=== PATIENT | male | born 1960 ===

== ENCOUNTER 2017-09-13 15:42 | Emergency (ER) | payer OTHER ==
[2017-09-13 15:55] VITALS: BP 155/70; PULSE 74; TEMP 97.4; O2SAT 99
[2017-09-13] MEDS: Naproxen 550 mg Tab PO STA (16:30)
[2017-09-13] MEDS ORDERED: Naproxen 550 mg Tab PO ONE (16:31)
--- NOTE | 2017-09-13 16:45 | RAD ---
PROCEDURE: Cervical Spine Radiographs. HISTORY: Pain. COMPARISON: None. FINDINGS: BONES: Vertebral bodies maintained in height. Normal alignment maintained. The atlantoaxial articulation and odontoid process are intact DISC SPACES: There is narrowing of the C5-6 and C6-7 intervertebral disc spaces consistent with degenerative disc disease. The remaining intervertebral disc spaces are maintained in height. SOFT TISSUES: Normal. No prevertebral soft tissue swelling. OTHER FINDINGS: None. IMPRESSION: Degenerative disc disease at C5-6 and C6-7. No evidence of fracture or dislocation
[2017-09-13 16:51] VITALS: RESP 18
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
== END 2017-09-13 17:23 | disposition home or self-care (01) ==
LOC: C.ER 15:42
DX: S13.4XXA Sprain of ligaments of cervical spine, initial encounter (principal); V43.53XA Car driver injured in collision with pick-up truck in traffic accident, initial encounter; Y92.488 Other paved roadways as the place of occurrence of the external cause